=== PATIENT | male | born 1990 | race Two or more races ===

== ENCOUNTER → 2025-06-07 | Emergency (ER) | payer OTHER ==
[~2025-06-07] VITALS: Ht 172.7 cm; Wt 93.0 kg
[2025-06-07 21:44] VITALS: BP 134/90; O2SAT 99
== END | disposition left against medical advice (07) ==
LOC: ER 21:28
DX: Z53.21 Procedure and treatment not carried out due to patient leaving prior to being seen by health care provider (principal)